=== PATIENT | female | born 1995 | race African-American/Black ===

== ENCOUNTER 2021-07-23 09:28 | Emergency (ER) | payer OTHER ==
[2021-07-23 09:37] VITALS: BP 113/77; PULSE 91; TEMP 97.3; BMI 46.5
[2021-07-23] MEDS ORDERED: KETOROLAC TROMETHAMINE 30 MG/1 ML VIAL IM ONE (10:00)
[2021-07-23] MEDS ORDERED: KETOROLAC TROMETHAMINE 30 MG/1 ML VIAL ONE (10:05)
== END 2021-07-23 10:38 | disposition home or self-care (01) ==
LOC: JERFT 09:28
PROC: 3E0233Z Introduction of Anti-inflammatory into Muscle, Percutaneous Approach (ICD-10-PCS; principal; 2021-07-23)
DX: U07.1 COVID-19 (principal)
CPT/HCPCS: 99284-25; C9803; U0003; U0005

== ENCOUNTER 2022-08-31 21:33 | Emergency (ER) | payer OTHER ==
[2022-08-31 22:11] VITALS: BP 108/73; PULSE 71; RESP 20; TEMP 97.4; BMI 58.2
[2022-08-31] MEDS ORDERED: ACETAMINOPHEN 500 MG TABLET (FP) PO ONE (23:32)
[2022-08-31] MEDS ORDERED: DIPHTH,PERTUSS(ACELL),TET 0.5 ML DISP.SYRIN IM ONE (23:56)
[2022-09-01] MEDS ORDERED: DIPHTH,PERTUSS(ACELL),TET 0.5 ML DISP.SYRIN IM ONE (00:03)
[2022-09-01] MEDS ORDERED: BACITRACIN 15 GM TUBE TOPICAL OINTMENT TP ONE (00:38)
== END 2022-09-01 01:08 | disposition home or self-care (01) ==
LOC: JER 21:33
PROC: 3E0234Z Introduction of Serum, Toxoid and Vaccine into Muscle, Percutaneous Approach (ICD-10-PCS; principal; 2022-08-31)
DX: S61.211A Laceration without foreign body of left index finger without damage to nail, initial encounter (principal); W27.2XXA Contact with scissors, initial encounter
CPT/HCPCS: 73130-TC-LT-FY; 90471; 90715; 99284-25